=== PATIENT | male | born 1955 | race Caucasian/White ===

== ENCOUNTER 2016-11-07 07:59 | Inpatient (IN) ==
--- NOTE | 2016-11-06 20:58 | Discharge Summary ---
<Linda Cordero - Last Filed: 11/06/16 20:55> Date of Encounter: 11/06/16 - Discharge Diagnosis (1) Left rotator cuff tear arthropathy Priority: Primary Status: Acute (2) HTN (hypertension) Priority: Secondary Status: Chronic Qualifiers: Hypertension type: essential hypertension Qualified Code(s): I10 - Essential (primary) hypertension (3) History of seizure Priority: Secondary Status: Chronic (4) Rheumatoid arthritis Priority: Secondary Status: Chronic Qualifiers: Rheumatoid arthritis location: unspecified site Rheumatoid factor presence : unspecified presence Qualified Code(s): M06.9 - Rheumatoid arthritis, unspecified (5) Obesity Priority: Secondary Status: Chronic Qualifiers: Obesity type: unspecified obesity type Obesity severity: unspecified obesity severity Qualified Code(s): E66.9 - Obesity, unspecified (6) Chronic pain Priority: Secondary Status: Chronic Qualifiers: Chronic pain type: other chronic pain Qualified Code(s): G89.29 - Other chronic pain - Discharge Medications Home Medications: Aspirin Enteric Coated [Aspirin EC] 325 mg PO DAILY #21 11/06/16 [Rx] Allopurinol [Zyloprim] 300 mg PO DAILY 11/07/16 [History] Amlodipine Besylate 10 mg PO DAILY 11/07/16 [History] Carvedilol 12.5 mg PO BID 11/07/16 [History] HYDROmorphone [Dilaudid] 2 mg PO Q6HR 11/07/16 [History] Indomethacin 50 mg PO BID 11/07/16 [History] LevETIRAcetam [Keppra] 750 mg PO BID 11/07/16 [History] Losartan Potassium [Cozaar] 50 mg PO DAILY 11/07/16 [History] Zolpidem [Ambien] 10 mg PO HS 11/07/16 [History] Allergies/Adverse Reactions: Allergies No Known Allergies Allergy (Verified 11/07/16 08:26) Primary care physician: PCP NO - Patient Status Disposition: Home, Self-Care Condition: Good - Discharge Instructions Follow Up With: Toan Wallace MD [Partnered Physician] - 12/06/16 9:30 am Linda Cordero PAC [Physician Call Center Dispatcher] - 11/17/16 9:15 am NO,PCP [Primary Care Provider] - - Hospital Course Hospital course: Mr. Shahram is a 60 year old male - Time Spent with Patient Total time spent providing and/or coordinating discharge services: <Toan Wallace - Last Filed: 11/09/16 06:41> Date of Encounter: 11/09/16 Time of Encounter: 06:41 - Discharge Diagnosis (1) Left rotator cuff tear arthropathy Priority: Primary Status: Acute (2) Chronic pain Priority: Secondary Status: Chronic Qualifiers: Chronic pain type: other chronic pain Qualified Code(s): G89.29 - Other chronic pain (3) HTN (hypertension) Priority: Secondary Status: Chronic Qualifiers: Hypertension type: essential hypertension Qualified Code(s): I10 - Essential (primary) hypertension (4) History of seizure Priority: Secondary Status: Chronic (5) Obesity Priority: Secondary Status: Chronic Qualifiers: Obesity type: unspecified obesity type Obesity severity: unspecified obesity severity Qualified Code(s): E66.9 - Obesity, unspecified (6) Rheumatoid arthritis Priority: Secondary Status: Chronic Qualifiers: Rheumatoid arthritis location: unspecified site Rheumatoid factor presence : unspecified presence Qualified Code(s): M06.9 - Rheumatoid arthritis, unspecified Primary care physician: PCP NO - Patient Status Functional capacity at discharge: independent ambulation Overall status at discharge: patient is progressing back to baseline - Hospital Course Hospital course: Mr. Omalley is a 60 year old male The patient had an uneventful postoperative course. They received antibiotics and physical therapy and were discharged in stable condition. There will follow -up in the office in 2 weeks. - Time Spent with Patient Total time spent providing and/or coordinating discharge services:
--- NOTE | 2016-11-07 08:17 | History & Physical Report ---
Date of Encounter: 11/07/16 Time of Encounter: 08:17 24 Hour HP Update - Instructions Instructions: If the History and Physical is less than 30 days old and was completed prior to A.M. admission and or procedure and has NOT been updated on calendar day of procedure please complete this update prior to performing procedure. - Update Patient reports changes in Medical Condition: No Changes in assessment/condition: No Changes in Medication: No Preop tests/diagnostics Reviewed: Yes Surgery Remains Indicated: Yes Consent for Planned Operative Procedure(s) Verified: Yes - Pre-Operative Checklist Preoperative Checklist Indicated: No Prophylactic Antibiotic Ordered: Yes Is VTE Prophylaxis Indicated?: Yes
[2016-11-07] MEDS ORDERED: CeFAZolin Pre 3,000 MG/100 ML 3,000 MG/100 ML BAG IVPB ONE ×2 (08:44→08:58)
[2016-11-07] MEDS ORDERED: Ringers Solution, Lactated 1,000 ML IVC SCH ×2 (08:45→12:47)
[2016-11-07] MEDS ORDERED: *HR* FentaNYL (PF) 100 MCG/2 ML VIAL ONE (09:10)
[2016-11-07] MEDS ORDERED: *HR* Propofol 200 MG/20 ML VIAL IVP ONE (09:10)
[2016-11-07] MEDS ORDERED: *HR* Midazolam HCl 2 MG/2 ML VIAL ONE (09:10)
[2016-11-07] MEDS ORDERED: Lidocaine -MPF 2% 2 ML VIAL ONE (09:12)
--- NOTE | 2016-11-07 09:18 | Anesthesia Evaluation PreOp ---
Date of Encounter: 11/07/16 Time of Encounter: 09:15 - Past History Planned Operation: Left Total Shoulder Replacement Cardiac History: HTN, Hyperlipidemia, Arrhythmia (Hx AFib currently SR) Pulmonary History: Denies Any Significant HX B2B SALES EXECUTIVE History: Seizures (Last one 2012) Other Medical History: Other (MO, RA, Gout) Anesthesia History: No Prior Anesthetic Complications Alcohol Use: heavy, recent Drug use: none Medications and Allergies Aspirin Enteric Coated [Aspirin EC] 325 mg PO DAILY #21 11/06/16 [Rx] Allopurinol [Zyloprim] 300 mg PO DAILY 11/07/16 [History] Amlodipine Besylate 10 mg PO DAILY 11/07/16 [History] Carvedilol 12.5 mg PO BID 11/07/16 [History] HYDROmorphone [Dilaudid] 2 mg PO Q6HR 11/07/16 [History] Indomethacin 50 mg PO BID 11/07/16 [History] LevETIRAcetam [Keppra] 750 mg PO BID 11/07/16 [History] Losartan [Cozaar] 25 mg PO DAILY 11/07/16 [History] Zolpidem [Ambien] 10 mg PO HS 11/07/16 [History] Allergies No Known Allergies Allergy (Verified 11/07/16 08:26) - Meds/Allergy Pre-op Review Medications Reviewed: Yes Allergies Reviewed: Yes Beta Blockers on Current Med List: Yes (Took Coreg today 0400) Anesthesia Results - Labs Laboratory Tests 10/26/16 10/26/16 14:05 14:05 Hgb 12.7 L Hct 38.1 Plt Count 215 Sodium 139 Potassium 4.4 BUN 9 Creatinine 0.78 - Imaging EKG: report reviewed (SR First Dgree AV Block) Additional studies: 60% from 2012 ECHO, Stress Test Negative Anesthesia Exam O2 Sat Height 1.77 m Height 1.77 m Height 1.77 m Weight 127.006 kg Weight 127.006 kg Weight 127.006 kg O2 Sat by Pulse Oximetry 96 O2 Sat by Pulse Oximetry 96 Vital Signs Temp Pulse Resp BP Pulse Ox 98.8 F 83 18 165/91 96 11/07/16 08:24 11/07/16 08:24 11/07/16 08:24 11/07/16 08:24 11/07/16 08:24 Height: 5'10 Weight: 280 lbs NPO (# of Hours): MN Pain Scale: 0 - HEENT Pupil (Motor): Pupils equal, EOMI Mallampati: III Teeth: Normal Oral Opening: Less than or equal to 3 - B2B SALES EXECUTIVE LOC: Oriented B2B SALES EXECUTIVE Motor: Normal RUE, Normal LUE, Normal RLE, Normal LLE, Normal Face B2B SALES EXECUTIVE Sensory: Normal: RUE, LUE, RLE, LLE, Face - Cardiac Rhythm: Regular Murmur: None JVD: No Carotid Bruit: No - Pulmonary Breath Sounds: bilateral Clear Respiratory Effort: Symmetrical Anesthesia Assess/Plan ASA Score: 3 (MO HTN) Modified [place] Scale for Level of Consciousness: Cooperative, oriented, and tranquil Anesthetic Plan: General, Regional Monitoring Plan: Standard Monitors Recovery Plan: PACU (Discussed GA and RA, agrees to proceed)
[2016-11-07] MEDS ORDERED: *HR* Phenylephrine 10 MG/ML VIAL ONE (09:51)
[2016-11-07] MEDS ORDERED: ROPIVACAINE HCL/PF 0.5% 30 ML VIAL ONE (10:12)
[2016-11-07] MEDS ORDERED: Bupivacaine/Clonidine Syringe 1 EACH SYRINGE ONE (10:13)
[2016-11-07] MEDS ORDERED: Tetracaine/PF 20 MG/2 ML AMPUL SPINA ONE (10:13)
[2016-11-07] MEDS ORDERED: Ondansetron 4 MG/2 ML VIAL ONE (10:46)
[2016-11-07] MEDS ORDERED: Dexamethasone 4 MG/ML VIAL ONE (10:46)
[2016-11-07] MEDS ORDERED: *HR* Morphine 10 MG/ML VIAL ONE (11:09)
[2016-11-07] MEDS ORDERED: *HR* Labetalol 100 MG/20 ML MDV IVP PRN (11:14)
--- NOTE | 2016-11-07 11:14 | Anesthesia Procedures ---
Date of Encounter: 11/07/16 Time of Encounter: 10:15 Procedures: Anesthesia - Nerve Block Procedure Date: 11/07/16 Time: 01:01 Allergies/Adv Reactions: Allergies No Known Allergies Allergy (Verified 11/07/16 08:26) Pre-op Diagnosis: left rotator cuff arthropathy Surgical Procedure: left shoulder reverse ball Checklist: Correct Patient Identifier, Correct procedure, History checked Correct side: Left Blood Thinner: No Monitor Applied: EKG, BP, Pulse Oximetry Supplemental Oxygen via Nasal Cannula (L/min): 2 Sedation: Versed (mg): 2 Sedation: Fentanyl (mcg): 50 Indication: Post Op Analgesia Pre-op Neuro Deficits: No Block Type: Supraclavicular Catheter placed: No Sterile Technique: Yes Ultrasound used: Yes Anatomy identified: Yes Visual spread of Local: Yes Neuro Stimulation: No Blood on Needle Aspiration: No Smooth Injection of Local: Yes Pain with Injection of Local: No Prep: Chlorhexadine Needle: 22 x 50 mm Stimuplex Local: Other (bupivicaine 0.5%) Volume (cc): 30 Number of Attempts: 1 Complications: None/effective block Vitals: Vital Signs/O2 Sat, Most Current Temp Pulse Resp BP Pulse Ox 98.8 F 74 16 145/84 100 11/07/16 08:48 11/07/16 10:11 11/07/16 10:11 11/07/16 10:11 11/07/16 10:11
--- NOTE | 2016-11-07 11:20 | Orthopedic Operative Note ---
Date of procedure: 11/07/16 Pre-op diagnosis: Left shoulder cuff tear arthropathy joint cyst Post-op diagnosis: same Procedure: Procedure: Left Total Shoulder Replacment Reverse, cyst evacuation Estimated blood loss: 100 cc Hardware:Arthrex large glenoid baseplate, 2 4.5 screws. 1 6.5 screw, lateral glenosphere, 13 humeral stem, poly insert 3 and 9 metal Exam Under anesthesia: Full motion no instability 6 x 6 cm cyst superior shoulder Procedural Notes: Grade 4 arthritic changes glenoid humeral head irreparable tear supraspinatus subscapularis and upper spinatus, large cyst. Operative procedure: The patient was brought to the operating room and placed on the operating room table. After general anesthesia was administered the operative shoulder was examined. Findings were noted. The patient was placed in the modified beachchair position. All pressure points were padded appropriately. And the head was stabilized in the neutral position. The operative extremity was prepped and draped in the sterile surgical fashion. The patient received IV antibiotics prior to skin incision. A standard deltopectoral approach was made to the operative shoulder. Incision was made to the skin and subcutaneous tissue,hemo stasis was obtained with Bovie cautery. Using careful blunt dissection the cephalic vein was identified and mobilized medially. The deltopectoral interval was developed and the clavipectoral fascia was incised. No subscap was identifiable. The humerus was dislocated patient noted to have irreparable tear supraspinatus subscapularis and infraspinatus tendon, and an grade 4 arthritic changes humeral head glenoid socket. Subcutaneous dissection to the cyst revealed normal synovial type fluid which was evacuated with pressure and a suction. The humeral cut was made along the anatomic neck. Anterior and posterior Bankart retractors were placed to expose the glenoid. The glenoid guide was seated and the centering hole was made. It was reamed with the appropriate large reamer. The large baseplate was seated and secured with (2) 4.5 screws and one 6.5 screw. The baseplate was irrigated and dried and the 42 lateral Glenosphere was seated and secured with the Henriquez taper. The Henriquez taper was tested and found to be secure the humerus was redislocated and prepared with the diaphyseal reamers, followed by a broaching process up to the appropriate size 13 in the patient's anatomic version. The metaphyseal reamer was then utilized. Trial reduction found the shoulder to be relocatable. Trial components were removed. The appropriate 13 stem was impacted in place in the patient's anatomic version. Trial reduction found the shoulder to be relocatable and stable with the 6 metal and 3 Mary Trial component was removed and the 6 metal and 3 Mary was seated and secured the shoulder was reduced. The shoulder had excellent motion and excellent stability and no evidence of dislocation. The deep tissue was irrigated with pulse irrigation. The deltopectoral interval was closed with a running #1 PDS suture, subcutaneous tissue was irrigated and closed with 0 PDS suture, the skin was closed with Dermabond. The patient was placed in a sterile dressing, abduction brace and extubated. The patient was then transferred to the recovery room in stable condition. Anesthesia: ANNIKA Surgeon: Toan Wallace Post Adoption Coordinator: Linda Cordero Condition: stable Disposition: PACU
[2016-11-07] MEDS: *HR* HYDROmorphone (PF) 1 MG/ML SYRINGE IVP PRN ×5 (11:38→22:15)
[2016-11-07 12:07] LABS: Hematocrit 32.8 % (37.5-50.1); Hemoglobin 10.8 g/dL (12.9-16.9)
--- NOTE | 2016-11-07 12:22 | Anesthesia Evaluation Post Op ---
Date of Encounter: 11/07/16 Time of Encounter: 12:21 - Vital Signs Vital Signs: Vital Signs/O2 Sat/Glucose, Most Recent Temp Pulse Resp BP Pulse Ox 97.8 F 66 16 132/93 95 11/07/16 12:04 11/07/16 12:04 11/07/16 12:04 11/07/16 12:04 11/07/16 12:04 Blood Glucose* 109 - Lungs Lungs: Clear Ascult./Percussion - Airway Airway: Non-obstructed - Cardiovascular Regular Rate, Baseline Rhythm - Mental Status Mental Status: Asleep with brisk response to light stimulation - Pain Pain Scale: 2 Pain Scale used: Martins-Prateek (Faces) - Nausea Vomiting Nausea Vomiting: Not Present - Hydration Hydration: Tolerates oral liquids, Has not voided Notes: 11/07/16 12:22 naac - Discharge PostOp Status: Transfer Patient to floor
[2016-11-07] MEDS ORDERED: Albuterol Neb 1.25 MG/3 ML VIAL IH ONE (12:47)
[2016-11-07] MEDS ORDERED: *HR* OxyCODONE Immed Rel 5 MG TABLET PO PRN (12:47)
[2016-11-07] MEDS ORDERED: Naloxone 0.4 MG/ML INJ IVP PRN (12:47)
[2016-11-07] MEDS ORDERED: Sennosides 8.6 MG TABLET PO PRN (12:47)
[2016-11-07] MEDS ORDERED: MOM Conc 10 ML UD.LIQ PO PRN (12:47)
[2016-11-07] MEDS ORDERED: Temazepam 15 MG CAPSULE PO PRN (12:47)
[2016-11-07] MEDS ORDERED: Ondansetron 4 MG/2 ML VIAL IVP PRN (12:47)
[2016-11-07] MEDS ORDERED: Acetaminophen 325 MG TABLET PO PRN (12:47)
[2016-11-07] MEDS: *HR* OxyCODONE Immed Rel 5 MG TABLET PO PRN ×2 (13:45→18:38)
[2016-11-07] MEDS: *HR* Enoxaparin 30 MG/0.3 ML SYRINGE SQ SCH (16:38)
[2016-11-07] MEDS: ceFAZolin 3,000 MG in D5% in Water 100 ML IVPB SCH ×2 (16:38→23:43)
[2016-11-07] MEDS ORDERED: *HR* Enoxaparin 30 MG/0.3 ML SYRINGE SQ SCH (18:00)
[2016-11-07] MEDS: Indomethacin 25 MG CAPSULE PO SCH (20:09)
[2016-11-07] MEDS: levETIRAcetam 250 MG TABLET PO SCH (20:09)
[2016-11-08] MEDS: *HR* Enoxaparin 30 MG/0.3 ML SYRINGE SQ SCH ×2 (05:00→17:13)
[2016-11-08] MEDS: *HR* OxyCODONE Immed Rel 5 MG TABLET PO PRN ×4 (05:00→18:44)
[2016-11-08 06:19] LABS: Hematocrit 31.5 % (37.5-50.1); Hemoglobin 10.7 g/dL (12.9-16.9)
--- NOTE | 2016-11-08 06:25 | Orthopedics Progress Note ---
Date of Encounter: 11/08/16 Time of Encounter: 06:25 - Assessment and Plan (1) Left rotator cuff tear arthropathy Current Visit: Yes Status: Acute (2) Chronic pain Current Visit: Yes Status: Chronic Qualifiers: Chronic pain type: other chronic pain Qualified Code(s): G89.29 - Other chronic pain (3) HTN (hypertension) Current Visit: Yes Status: Chronic Qualifiers: Hypertension type: essential hypertension Qualified Code(s): I10 - Essential (primary) hypertension (4) History of seizure Current Visit: Yes Status: Chronic (5) Obesity Current Visit: Yes Status: Chronic Qualifiers: Obesity type: unspecified obesity type Obesity severity: unspecified obesity severity Qualified Code(s): E66.9 - Obesity, unspecified (6) Rheumatoid arthritis Current Visit: Yes Status: Chronic Qualifiers: Rheumatoid arthritis location: unspecified site Rheumatoid factor presence : unspecified presence Qualified Code(s): M06.9 - Rheumatoid arthritis, unspecified Subjective Interval history: Patient was seen this morning doing well without complaints. Afebrile vital signs stable. Operative extremity: Neurovascularly intact Dressing clean dry and intact Calves nontender Assessment and plan: Continue with postoperative care Objective Vital signs: Vital Signs Temp Pulse Resp BP Pulse Ox 11/08/16 04:15 98.1 F 71 19 144/89 98 11/07/16 23:45 98.1 F 63 15 157/82 98 11/07/16 19:39 98 F 79 20 148/86 95 11/07/16 15:17 97.8 F 70 15 140/83 96 11/07/16 14:09 97.7 F 70 16 134/88 98 11/07/16 13:42 97.7 F 71 16 147/98 98 11/07/16 13:05 16 97 11/07/16 12:50 97.8 F 68 16 138/92 95 11/07/16 12:34 98.0 F 68 12 136/80 95 11/07/16 12:24 67 12 130/79 95 11/07/16 12:14 65 12 135/85 95 11/07/16 12:04 97.8 F 66 16 132/93 95 11/07/16 11:54 67 16 144/92 95 11/07/16 11:44 71 16 144/90 96 11/07/16 11:34 97.3 F L 75 16 148/81 98 11/07/16 10:11 74 16 145/84 100 11/07/16 09:55 72 16 156/87 99 11/07/16 08:48 98.8 F 83 18 165/91 96 11/07/16 08:24 98.8 F 83 18 165/91 96 Intake and Output 11/07/16 11/07/16 11/08/16 15:59 23:59 07:59 Intake Total 800 / 800 100 / 100 Output Total 100 / 100 200 / 200 Balance 700 / 700 100 / 100 -200 / -200 Intake: IV Fluids 800 / 800 100 / 100 Lactated Ringers 1,000 ML 700 / 700 @ 25 mls/hr IVC .Q24H BRITTANEY Rx#:[id number] Ancef 3,000 MG In 100 / 100 Dextrose 5% 100 ML @ 200 mls/hr IVPB Q8HR BRITTANEY Rx#: [id number] Ancef Premix 3,000 MG/100 100 / 100 ML 3,000 mg In 100 ml @ 200 mls/hr IVPB PREOP ONE Rx#:[id number] Oral 0 / 0 Output: Urine 200 / 200 Estimated Blood Loss 100 / 100 Other: # Voids 1 Weight 127.006 kg Blood Glucose* 109 - Labs CBC & BMP: 11/08/16 05:36 Labs: Abnormal lab results Hgb 10.7 g/dL (12.9-16.9) L 11/08/16 05:36 Hct 31.5 % (37.5-50.1) L 11/08/16 05:36 POC Glucose 109 (58-89) H 11/07/16 08:38 - VTE Documentation of Mechanical Device: Venous foot pump, device Consult Discharge Plan - Plan Referrals: Toan Wallace MD [Partnered Physician] - 12/06/16 9:30 am Linda Cordero PAC [Physician Sales And Marketing Representative] - 11/17/16 9:15 am NO,PCP [Primary Care Provider] -
[2016-11-08] MEDS: levETIRAcetam 250 MG TABLET PO SCH ×2 (10:04→21:10)
[2016-11-08] MEDS: amLODIPine 5 MG TABLET PO SCH (10:05)
[2016-11-08] MEDS: Indomethacin 25 MG CAPSULE PO SCH ×2 (10:05→21:10)
[2016-11-08] MEDS: *HR* HYDROmorphone (PF) 1 MG/ML SYRINGE IVP PRN (21:11)
[2016-11-09] MEDS: *HR* OxyCODONE Immed Rel 5 MG TABLET PO PRN ×3 (00:36→09:19)
[2016-11-09] MEDS: *HR* Enoxaparin 30 MG/0.3 ML SYRINGE SQ SCH (05:03)
[2016-11-09 06:05] LABS: Hematocrit 29.4 % (37.5-50.1); Hemoglobin 9.7 g/dL (12.9-16.9)
--- NOTE | 2016-11-09 06:42 | Orthopedics Progress Note ---
Date of Encounter: 11/09/16 Time of Encounter: 06:41 - Assessment and Plan (1) Left rotator cuff tear arthropathy Current Visit: Yes Status: Acute (2) Chronic pain Current Visit: Yes Status: Chronic Qualifiers: Chronic pain type: other chronic pain Qualified Code(s): G89.29 - Other chronic pain (3) HTN (hypertension) Current Visit: Yes Status: Chronic Qualifiers: Hypertension type: essential hypertension Qualified Code(s): I10 - Essential (primary) hypertension (4) History of seizure Current Visit: Yes Status: Chronic (5) Obesity Current Visit: Yes Status: Chronic Qualifiers: Obesity type: unspecified obesity type Obesity severity: unspecified obesity severity Qualified Code(s): E66.9 - Obesity, unspecified (6) Rheumatoid arthritis Current Visit: Yes Status: Chronic Qualifiers: Rheumatoid arthritis location: unspecified site Rheumatoid factor presence : unspecified presence Qualified Code(s): M06.9 - Rheumatoid arthritis, unspecified Subjective Interval history: Patient was seen this morning doing well without complaints. Afebrile vital signs stable. Operative extremity: Neurovascularly intact Dressing clean dry and intact Calves nontender Assessment and plan: Continue with postoperative care Discharged today Objective Vital signs: Vital Signs Temp Pulse Resp BP Pulse Ox 11/09/16 04:34 97.9 F 67 17 137/75 98 11/09/16 00:00 97.6 F 73 16 131/76 97 11/08/16 21:02 98.7 F 85 16 145/79 97 11/08/16 15:00 98.1 F 80 16 149/84 95 11/08/16 11:00 98.1 F 70 16 137/85 96 11/08/16 07:11 99.2 F 75 18 140/82 97 Intake and Output 11/08/16 11/08/16 11/09/16 15:59 23:59 07:59 Output Total 100 / 100 Balance -100 / -100 Output: Urine 100 / 100 Other: # Voids 1 - Labs CBC & BMP: 11/09/16 05:36 Labs: Abnormal lab results Hgb 9.7 g/dL (12.9-16.9) L 11/09/16 05:36 Hct 29.4 % (37.5-50.1) L 11/09/16 05:36 POC Glucose 109 (58-89) H 11/07/16 08:38 - VTE Documentation of Mechanical Device: Venous foot pump, device Consult Discharge Plan - Plan Referrals: Toan Wallace MD [Partnered Physician] - 12/06/16 9:30 am Linda Cordero, PAC [Physician Momd Teacher] - 11/17/16 9:15 am LOPEZ,PCP [Primary Care Provider] -
[2016-11-09] MEDS: Indomethacin 25 MG CAPSULE PO SCH (09:19)
[2016-11-09] MEDS: levETIRAcetam 250 MG TABLET PO SCH (09:20)
[2016-11-09] MEDS: amLODIPine 5 MG TABLET PO SCH (09:20)
[2016-11-09 10:38] VITALS: BP 137/81
[2016-11-09] MEDS ORDERED: FLU VACC QS2016-17 36MOS UP/PF 0.5 ML SYRINGE IM ONE (12:22)
== END 2016-11-09 12:54 | disposition home health service (06) | DRG 483 ==
LOC: SAMDAY 07:59 → 3NENU 12:47
PROVIDERS: ADMIT Orthopaedic Surgery; ATTEND Orthopaedic Surgery